=== PATIENT | male | born 1995 | race Caucasian/White ===

== ENCOUNTER 2019-12-06 08:27 | Emergency (ER) | payer OTHER ==
[~2019-12-06] VITALS: Ht 185.4 cm; Wt 115.7 kg
[2019-12-06 08:42] VITALS: BP 147/97
[2019-12-06] MEDS ORDERED: CEPHALEXIN500 M1 PO (09:59)
[2019-12-06] MEDS ORDERED: NORCO 5-325 TA1 EACH PO (09:59)
== END 2019-12-06 10:17 | disposition home or self-care (01) ==
LOC: ED 08:27
DX: T23.221A Burn of second degree of single right finger (nail) except thumb, initial encounter (principal); T23.131A Burn of first degree of multiple right fingers (nail), not including thumb, initial encounter; X08.8XXA Exposure to other specified smoke, fire and flames, initial encounter; Y93.89 Activity, other specified; Y92.89 Other specified places as the place of occurrence of the external cause; Y99.8 Other external cause status